=== PATIENT | male | born 1935 | race Asian ===

== ENCOUNTER → 2018-12-24 | Outpatient (REF) | payer MEDICARE ==
[2018-12-24 19:01] LABS: ALBUMIN 3.9 GM/DL (3.2-5.2); ALT/SGPT 41 U/L (12-78); BILIRUBIN,TOTAL 1.2 MG/DL (0.2-1.0); BLOOD UREA NITROGEN 15 MG/DL (7-18); CALCIUM LEVEL 9.6 MG/DL (8.8-10.2); CARBON DIOXIDE LEVEL 30 MEQ/L (21-32); CHLORIDE LEVEL 97 MEQ/L (98-107); CHOLESTEROL LEVEL 119 MG/DL (<200); CHOLESTEROL RISK RATIO 2.125 (<5); CREATININE FOR GFR 1.09 MG/DL (0.70-1.30); FREE T4 0.82 NG/DL (0.76-1.46); GLOMERULAR FILTRATION RATE > 60.0 (>35); GLUCOSE, FASTING 145 MG/DL (70-100); HDL CHOLESTEROL 56 MG/DL (>40); LDL CHOLESTEROL 36 MG/DL (<100); NON-HDL-C 63 MG/DL; POTASSIUM SERUM 5.4 MEQ/L (3.5-5.1); SODIUM LEVEL 133 MEQ/L (136-145); TOTAL PROTEIN 7.5 GM/DL (6.4-8.2); TRIGLYCERIDES LEVEL 134 MG/DL (<150)
[2018-12-24 19:04] LABS: TOTAL 25(OH) VITAMIN D 31.3 NG/ML (30.0-100.0)
[2018-12-24 21:35] LABS: HEMOGLOBIN A1c 6.9 %
== END ==
LOC: M LAB REF 15:42
PROVIDERS: ATTEND Family Medicine
DX: Z12.11 Encounter for screening for malignant neoplasm of colon (principal); R53.83 Other fatigue; Z12.5 Encounter for screening for malignant neoplasm of prostate; Z79.01 Long term (current) use of anticoagulants; E11.9 Type 2 diabetes mellitus without complications

== ENCOUNTER 2019-02-13 17:40 | Emergency (ER) | payer MEDICARE ==
[~2019-02-13] VITALS: Ht 172.7 cm; Wt 97.0 kg
[2019-02-13] MEDS ORDERED: WARF-58 (17:55)
[2019-02-13] MEDS ORDERED: METF500T13 (17:55)
[2019-02-13] MEDS ORDERED: LISI10TA4 (17:55)
[2019-02-13 18:35] LABS: BASO # 0.1 10^3/uL (0.0-0.2); BASO % 1.1 % (0.0-1.0); EOS # 0.2 10^3/uL (0.0-0.5); EOS % 2.3 % (0.0-3.0); HEMATOCRIT 47.2 % (42.0-52.0); HEMOGLOBIN 16.1 g/dl (13.5-17.5); LYMPH # 2.7 10^3/uL (1.5-5.0); LYMPH % 33.4 % (24.0-44.0); MEAN CORPUSCULAR HEMOGLOBIN 32.1 pg (27.0-33.0); MEAN CORPUSCULAR HGB CONC 34.1 g/dl (32.0-36.5); MONO % 12.2 % (0.0-5.0); NEUTROPHILS % 50.4 % (36.0-66.0); PLATELET COUNT, AUTOMATED 185 10^3/uL (150-450); RED BLOOD COUNT 5.02 10^6/uL (4.30-6.10)
[2019-02-13 19:33] LABS: ALBUMIN 3.8 GM/DL (3.2-5.2); ALT/SGPT 54 U/L (12-78); BILIRUBIN,DIRECT 0.2 MG/DL (0.0-0.2); BILIRUBIN,TOTAL 0.6 MG/DL (0.2-1.0); BLOOD UREA NITROGEN 31 MG/DL (7-18); CALCIUM LEVEL 9.7 MG/DL (8.8-10.2); CARBON DIOXIDE LEVEL 27 MEQ/L (21-32); CHLORIDE LEVEL 102 MEQ/L (98-107); CK-MB VALUE MASS 1.7 NG/ML (<3.6); CPK CREATINE PHOSPHOKINASE 89 U/L (39-308); GLOMERULAR FILTRATION RATE > 60.0 (>35); GLUCOSE, FASTING 197 MG/DL (70-100); MB/CK RELATIVE INDEX 1.91 (< OR =4); SODIUM LEVEL 135 MEQ/L (136-145); TOTAL PROTEIN 7.8 GM/DL (6.4-8.2); TROPONIN I < 0.02 NG/ML (< 0.10)
[2019-02-13] MEDS ORDERED: NS 500 ML IV ONE (19:45)
[2019-02-13] MEDS ORDERED: MECLIZINE 25 MG TABLET PO ONE (19:45)
[2019-02-13 19:46] LABS: INR 2.59; PROTHROMBIN TIME 27.6 SECONDS (11.8-14.0)
[2019-02-13 19:47] LABS: PARTIAL THROMBOPLASTIN TIME 48.7 SECONDS (25.0-38.4)
--- NOTE | 2019-02-13 20:23 | REPVR ---
PROCEDURE INFORMATION: Exam: CT Head Without Contrast Exam date and time: 02/13/2019 8:04 PM Clinical history: 83 years old, male; Dizziness TECHNIQUE: Imaging protocol: Computed tomography of the head without contrast. Radiation optimization: All CT scans at this facility use at least one of these dose optimization techniques: automated exposure control; mA and/or kV adjustment per patient size (includes targeted exams where dose is matched to clinical indication); or iterative reconstruction. COMPARISON: No relevant prior studies available. FINDINGS: Brain: There is slight prominence of the peripheral sulci. Ventricles: Normal. No ventriculomegaly. Bones/joints: Left frontoparietal obdulia hole with small cover plate. Sinuses: Minimal ethmoid sinus mucosal thickening. Mastoid air cells: Visualized mastoid air cells are well aerated. Soft tissues: Unremarkable. IMPRESSION: 1. Left frontoparietal obdulia hole. 2. Minimal atrophy. 3. Otherwise negative noncontrast head CT. Electronically signed by: Yemi Jo On 02/13/2019 20:23:19 PM
[2019-02-13 22:00] VITALS: BP 139/80
[2019-02-13] MEDS ORDERED: NAPR-837 PO (22:02)
[2019-02-13] MEDS ORDERED: MECL-68 PO (22:02)
--- NOTE | 2019-02-14 08:39 | REP ---
Left shoulder: Three views. History: Left shoulder pain with movement. Findings: Three views of the left shoulder demonstrate mild spurring at the AC joint. Glenohumeral and acromioclavicular joints are normally aligned. No fracture is seen. Periarticular soft tissues are unremarkable. Impression: Mild AC joint osteoarthritis. No acute bony abnormality. Electronically Signed by Yaya Seals MD 02/14/2019 08:30 A
--- NOTE | 2019-02-14 08:59 | REP ---
CHEST X-RAY: Two views. HISTORY: Weakness. FINDINGS: Monitoring electrodes are seen. The lungs are well inflated and clear. Pleural angles are sharp. The heart is mildly enlarged. Cardiothoracic ratio measures 47.6%. The heart appears somewhat prominent on the lateral radiograph as well. There are degenerative changes in the thoracic spine. The thoracic aorta is tortuous. Pulmonary vasculature is not increased. IMPRESSION: Mildly prominent heart. Otherwise, no acute disease. Electronically Signed by Yaya Seals MD 02/14/2019 09:12 A
--- NOTE | 2019-02-14 17:56 | ECGEPIP ---
[facility] - ED Test Date: 2019-02-13 Pat Name: EARLE DAMON Department: Room: - Gender: Male Professor Of [employer]: : 1935 Requested By: Amos Fowler Order Number: [id number] Reading MD: Christine Arizmendi Measurements Intervals [place] Rate: 72 P: [place]: 0 QRS: -19 QRSD: 86 T: 15 QT: 367 QTc: 403 Interpretive Statements ATRIAL FIBRILLATION ABNORMAL RHYTHM ECG NO PRIOR Electronically Signed on 02-14-2019 17:56:31 EST by Christine Arizmendi
== END 2019-02-13 22:21 | disposition home or self-care (01) ==
LOC: M ED 17:40
DX: H81.10 Benign paroxysmal vertigo, unspecified ear (principal); M25.512 Pain in left shoulder; I48.91 Unspecified atrial fibrillation; R94.31 Abnormal electrocardiogram [ECG] [EKG]; E11.9 Type 2 diabetes mellitus without complications; Z98.890 Other specified postprocedural states; Z79.84 Long term (current) use of oral hypoglycemic drugs; Z79.01 Long term (current) use of anticoagulants; Z79.899 Other long term (current) drug therapy; Z88.0 Allergy status to penicillin; Z88.8 Allergy status to other drugs, medicaments and biological substances

== ENCOUNTER → 2019-05-06 | Outpatient (REF) | payer MEDICARE ==
[~2019-05-06] MED LIST: LISI10TA4; MECL1TAB31 PO; METF500T13; NAPR-837 PO; WARF-58
[2019-05-06 11:33] LABS: HEMOGLOBIN A1c 7.2 %
[2019-05-06 11:39] LABS: ALBUMIN 3.8 GM/DL (3.2-5.2); ALT/SGPT 32 U/L (12-78); BILIRUBIN,TOTAL 1.2 MG/DL (0.2-1.0); BLOOD UREA NITROGEN 14 MG/DL (7-18); CALCIUM LEVEL 9.3 MG/DL (8.8-10.2); CARBON DIOXIDE LEVEL 30 MEQ/L (21-32); CHLORIDE LEVEL 97 MEQ/L (98-107); CHOLESTEROL LEVEL 143 MG/DL (<200); CHOLESTEROL RISK RATIO 2.344 (<5); CREATININE FOR GFR 1.09 MG/DL (0.70-1.30); GLOMERULAR FILTRATION RATE > 60.0 (>35); GLUCOSE, FASTING 227 MG/DL (70-100); HDL CHOLESTEROL 61 MG/DL (>40); LDL CHOLESTEROL 56 MG/DL (<100); NON-HDL-C 82 MG/DL; POTASSIUM SERUM 4.3 MEQ/L (3.5-5.1); SODIUM LEVEL 134 MEQ/L (136-145); TOTAL PROTEIN 7.1 GM/DL (6.4-8.2); TRIGLYCERIDES LEVEL 132 MG/DL (<150)
== END ==
LOC: M LAB REF 10:03
PROVIDERS: ATTEND Family Medicine
DX: E11.9 Type 2 diabetes mellitus without complications (principal)

== ENCOUNTER → 2019-09-02 | Outpatient (REF) | payer MEDICARE ==
[2019-09-02 13:25] LABS: INR 2.06
[2019-09-02 14:20] LABS: HEMOGLOBIN A1c 6.4 %
== END ==
LOC: M LAB REF 12:57
PROVIDERS: ATTEND Family Medicine Addiction Medicine
DX: E11.9 Type 2 diabetes mellitus without complications (principal); Z79.01 Long term (current) use of anticoagulants; N40.1 Benign prostatic hyperplasia with lower urinary tract symptoms

== ENCOUNTER → 2019-12-09 | Outpatient (REF) | payer MEDICARE ==
[2019-12-09 14:00] LABS: INR 2.64; PROTHROMBIN TIME 28.8 SECONDS (11.8-14.0)
== END ==
LOC: M LAB REF 12:36
PROVIDERS: ATTEND Family Medicine Addiction Medicine
DX: Z86.79 Personal history of other diseases of the circulatory system (principal); Z79.01 Long term (current) use of anticoagulants